=== PATIENT | female | born 2000 | race Caucasian/White ===

== ENCOUNTER 2022-09-29 14:17 | Emergency (ER) | payer MEDICAID, OTHER ==
[~2022-09-29] VITALS: Ht 160 cm; Wt 90.6 kg
[2022-09-29 14:20] VITALS: BP 144/74
--- NOTE | 2022-09-29 14:37 | ED General ---
General Chief Complaint: General Problems/Pain Stated Complaint: DIZZINESS; NAUSEA Source of Information: Patient Exam Limitations: No Limitations History of Present Illness Date Seen by Provider: Sep 29, 2022 Time Seen by Provider: 14:21 Initial Comments 22-year-old female who is otherwise healthy presents emergency department today for nausea and dizziness when she wakes up. Symptoms last about 30 minutes every time she wakes up. Symptoms present for a couple of months now. She was seen in the walk-in clinic and given nausea medicine. She states this made it worse. She is currently asymptomatic but states every morning for about 30 minutes she has nausea and dizziness. No chest pain or shortness of breath. No changes in bowel or bladder habits. Last menstrual cycle was last month and normal for her. Bedside test is negative here today. All other systems reviewed and negative except documented per HPI. Voice recognition software was used to help create this chart Allergies and Home Medications Patient Home Medication List Home Medication List Reviewed: Yes Review of Systems Review of Systems Constitutional: no symptoms reported Past Saeuldd-Mxffsu-Cbizow Hx Patient Social History Tobacco Use?: No Use of E-Cig and/or Vaping dev: No Substance use?: No Alcohol Use?: No Family Medical History Reviewed Nursing Family Hx No Pertinent Family Hx Physical Exam Vital Signs Capillary Refill : Height, Weight, BMI Height: '" Weight: lbs. oz. kg; BMI Method: General Appearance: No Apparent Distress, WD/WN HEENT: Normal ENT Inspection, Pharynx Normal Neck: Full Range of Motion, Normal Inspection, Non Tender, Supple Respiratory: Chest Non Tender, Lungs Clear, Normal Breath Sounds, No Accessory Muscle Use, No Respiratory Distress Cardiovascular: Regular Rate, Rhythm, No Murmur, Normal Peripheral Pulses Gastrointestinal: Normal Bowel Sounds, No Organomegaly, No Pulsatile Mass, Non Tender, Soft Extremity: Normal Capillary Refill, Normal Inspection, Normal Range of Motion, Non Tender Neurologic/Psychiatric: Alert, Oriented x3, No Motor/Sensory Deficits, Normal Mood/Affect, rn staff II-XII Norm as Tested Skin: Normal Color, Warm/Dry Lymphatic: No Adenopathy Progress/Results/Core Measures Suspected Sepsis SIRS Temperature: Pulse: Respiratory Rate: Blood Pressure / Mean: Results/Orders Vital Signs/I&O Capillary Refill : Departure Communication (Admissions) Patient is hemodynamically stable. She is completely asymptomatic. Bedside test is negative. Symptoms upwards of 2 months now, no indication for lab testing or other evaluation at this time. She only has symptoms when she wakes up which really limits the differential diagnosis. She will be discharged home with close primary care follow-up. She has an appointment on the . Impression Primary Impression: Encounter for medical screening examination Disposition: HOME, SELF-CARE Condition: Stable Departure-Patient Inst. Referrals: NO,LOCAL PHYSICIAN (PCP/Family) Primary Care Physician Add. Discharge Instructions: No emergent medical condition is identified for your symptoms today. Keep your appointment on the with your primary care doctor for further evaluation and treatment. Continue to use the nausea medicine you have at home as needed. All discharge instructions reviewed with patient and/or family. Voiced understanding. ANA MARIA RICE DO Sep 29, 2022 14:36
== END 2022-09-29 14:40 | disposition home or self-care (01) ==
LOC: ER FS 14:19
DX: Z00.00 Encounter for general adult medical examination without abnormal findings (principal); Z28.310 Unvaccinated for COVID-19
CPT/HCPCS: 99281

== ENCOUNTER 2022-11-05 18:48 | Emergency (ER) | payer MEDICAID ==
[~2022-11-05] VITALS: Ht 160 cm; Wt 89.9 kg
[2022-11-05 18:54] VITALS: BP 122/75
--- NOTE | 2022-11-05 19:06 | Diagnostic Imaging Report ---
INDICATION: Right foot pain. FINDINGS: Three views of the right foot show no fracture, dislocation or other acute abnormality. IMPRESSION: Negative right foot. Dictated by: Dictated on workstation # [id number]
--- NOTE | 2022-11-05 19:13 | ED Lower Extremity ---
General Chief Complaint: Lower Extremity Stated Complaint: FELL/TRIPPED,R PINKY TOE PAIN Nursing Triage Note: patient states she tripped and has pain rt pinky toe Source: patient History of Present Illness Date Seen by Provider: Nov 05, 2022 Time Seen by Provider: 18:51 Initial Comments 22-year-old female presenting with complaints of pain in her right foot in the fourth and fifth toes. She states that she had tripped over dogs at home this afternoon and ended up bending her toes in the right direction. She felt like she was having pain more when she walks. She has not taken anything for pain. She reports that she was too late to get to urgent care and have imaging done so she came here to the emergency department. She denies any other injuries. She did not hit her head or lose consciousness. She rates her pain at a 4 out of 10 unless she is walking and bearing weight and then it goes up "really high." Onset: this afternoon Severity: moderate Pain/Injury Location: right 4th toe, right 5th toe Method of Injury: other (Tripped over her dogs at home) Modifying Factors: Worse With Movement Allergies and Home Medications Allergies Coded Allergies: No Known Allergies (Verified Allergy, Unknown, 09/29/22) Patient Home Medication List Home Medication List Reviewed: Yes Review of Systems Constitutional: No chills, No fever EENTM: no symptoms reported Respiratory: no symptoms reported Cardiovascular: no symptoms reported Gastrointestinal: no symptoms reported Genitourinary: no symptoms reported Musculoskeletal: see HPI Skin: No change in color Psychiatric/Neurological: Denies Numbness, Denies Paresthesia Past Awokhgg-Zpyops-Tqztjf Hx Immunizations Up To Date Influenza Vaccine Up-to-Date: No; Not Current Past Medical History Surgery/Hospitalization HX: Denies. Family Medical History No Pertinent Family Hx Physical Exam Vital Signs Vital Signs - First Documented 11/05/22 18:54 Temp 36.9 Pulse 112 Resp 14 B/P (MAP) 122/75 (91) Pulse Ox 100 O2 Delivery Room Air Capillary Refill : Less Than 3 Seconds Height, Weight, BMI Height: '" Weight: lbs. oz. kg; 35.00 BMI Method: General Appearance: WD/WN, no apparent distress Cardiovascular: normal peripheral pulses Feet: right foot pain (Fourth and fifth toes), right foot soft tissue tenderness, right foot other (She has tenderness to palpation and movement of the fourth and fifth toes. There is no crepitus or step-off and no obvious deformity. There is no erythema or bruising.) Neurologic/Tendon: normal sensation, normal motor functions, normal tendon functions Neurologic/Psychiatric: alert, oriented x 3 Skin: normal color, warm/dry Progress/Results/Core Measures Results/Orders My Orders Orders - RALPH BADILLO MD Foot 3 View Right (11/05/22 18:52) Post-Op Shoe (11/05/22 19:16) Vital Signs/I&O 11/05/22 18:54 Temp 36.9 Pulse 112 Resp 14 B/P (MAP) 122/75 (91) Pulse Ox 100 O2 Delivery Room Air Blood Pressure Mean: 91 Progress Progress Note #1: Progress Note X-rays were obtained of the right foot to evaluate the fourth and fifth toes. On my personal interpretation and review I did not appreciate any acute fracture or dislocation. Counseled patient on symptomatic care of nilay taping and using a postop shoe. He is ice and elevation as well as anti-inflammatories to help with pain. Progress Note #2: Time: 19:11 Progress Note I reviewed the radiologist report on the three-view films of the right foot and they also did not see any acute fractures or dislocation. Proceed with plan as above Diagnostic Imaging Diagonstic Imaging: Xray Plain Films/CT/US/NM/MRI: other (right foot) Comments [facility], [place] NAME: OSWALD HENLEY [facility] REC#: [id number] PT STATUS: REG ER : 2000 PHYSICIAN: RALPH BADILLO MD ADMIT DATE: 11/05/22/ER FS Signed Date of Exam:11/05/22 FOOT 3 VIEW RIGHT INDICATION: Right foot pain. FINDINGS: Three views of the right foot show no fracture, dislocation or other acute abnormality. IMPRESSION: Negative right foot. Dictated by: Dictated on workstation # [id number] Dict: 11/05/221902 Trans: 11/05/221906 [facility] [id number] Interpreted by: JASS PERDUE MD Electronically signed by: JASS PERDUE MD 11/05/221906 Reviewed: Reviewed by Me Departure Impression Primary Impression: Toe pain, right Additional Impression: Contusion of toe of right foot Qualified Codes: S90.121A - Contusion of right lesser toe(s) without damage to nail, initial encounter Disposition: HOME, SELF-CARE Condition: Stable Departure-Patient Inst. Decision time for Depature: 19:11 Referrals: NO,LOCAL PHYSICIAN (PCP) Primary Care Physician [facility] [place] Patient Instructions: Minor Contusion ED, Toe Injury (DC) Add. Discharge Instructions: You could try taping the toes together to help give them extra support. Use a thick soled shoe to help limit movement of your toes. May use ice to help with pain and inflammation. Use ibuprofen or naproxen to help with pain and inflammation. Check back with the clinic if not improving or having worsening symptoms All discharge instructions reviewed with patient and/or family. Voiced understanding. RALPH BADILLO MD Nov 05, 2022 19:13
== END 2022-11-05 19:18 | disposition home or self-care (01) ==
LOC: EDUNIT# 18:48 → ER FS 18:50
DX: S90.121A Contusion of right lesser toe(s) without damage to nail, initial encounter (principal); Z28.310 Unvaccinated for COVID-19; W01.0XXA Fall on same level from slipping, tripping and stumbling without subsequent striking against object, initial encounter; Y92.009 Unspecified place in unspecified non-institutional (private) residence as the place of occurrence of the external cause
CPT/HCPCS: 73630

== ENCOUNTER 2022-12-20 17:23 | Emergency (ER) | payer MEDICAID ==
[~2022-12-20] VITALS: Ht 160 cm; Wt 92.1 kg
[2022-12-20] MEDS ORDERED: polyethylene glycoL POWDER 17 GM (MIRALAX) PACK PO STA (17:39)
[2022-12-20] MEDS ORDERED: NS IV 1000 ML 1,000 ML IV STA ×2 (17:39→19:30)
[2022-12-20] MEDS ORDERED: ONDANSETRON 4 MG/2 ML (SDV) Z0FRAN IVP STA (17:39)
--- NOTE | 2022-12-20 17:45 | ED GI ---
General Stated Complaint: ABD PAIN Source of Information: Patient History of Present Illness Date Seen by Provider: Dec 20, 2022 Time Seen by Provider: 17:25 Initial Comments 22-year-old female presenting with complaints of nausea and vomiting for the l ast hour. She also has rectal pressure. She has not had a bowel movement since yesterday. She denies having any vaginal bleeding or spotting. She denies pain with urination. She has not had any fever or chills. She states that she is approximately 9 weeks estimated gestational age and is following with Dr. Josiah Yeager for her obstetrical care. Timing/Duration: 1 Hour Severity/Quality: Severe Modifying Factors: Worsens With Eating Associated Symptoms: No Back Pain, No Chest Pain, No Diaphoresis, No Fever/Chills, No Fatigue, No Headache, No Heartburn; Nausea/Vomiting; No Rash, No Shortness of Air, No Swelling/Mass in Abdomen, No Syncope; Weakness Allergies and Home Medications Allergies Coded Allergies: Penicillins (Verified Allergy, Unknown, 12/20/22) Patient Home Medication List Home Medication List Reviewed: Yes Cephalexin (Cephalexin) 500 Mg Tablet, 500 MG PO TID Prescribed by: RALPH BADILLO on 12/20/222109 Review of Systems Review of Systems Constitutional: No chills, No fever EENTM: No Symptoms Reported Respiratory: No Symptoms Reported Cardiovascular: No Symptoms Reported Gastrointestinal: See HPI Genitourinary: See HPI Musculoskeletal: no symptoms reported Skin: no symptoms reported Psychiatric/Neurological: Anxiety Past Jnenqus-Sqhyla-Mcfsns Hx Past Medical History Surgery/Hospitalization HX: Denies. Family Medical History No Pertinent Family Hx Physical Exam Vital Signs Vital Signs - First Documented 12/20/22 12/20/22 17:30 21:13 Temp 36.7 Pulse 111 Resp 20 B/P (MAP) 112/75 (87) Pulse Ox 99 O2 Delivery Room Air Capillary Refill : Height/Weight/BMI Height: '" Weight: lbs. oz. kg; 35.00 BMI Method: General Appearance: WD/WN, no apparent distress HEENT: PERRL/EOMI Respiratory: chest non-tender, lungs clear, normal breath sounds Cardiovascular: normal peripheral pulses, regular rate, rhythm Gastrointestinal: normal bowel sounds, non tender, soft, no pulsatile mass Rectal: normal exam (no external hemorrhoid or swelling to anal o pening and no erythema), normal rectal tone Extremities: normal range of motion, non-tender, normal capillary refill Neurologic/Psychiatric: alert, oriented x 3 Skin: normal color, warm/dry Progress/Results/Core Measures Results/Orders Lab Results Laboratory Tests Test 12/20/22 18:04 12/20/22 18:56 Range/Units White Blood Count 12.5 H 4.3-11.0 10^3/uL Red Blood Count 4.47 3.80-5.11 10^6/uL Hemoglobin 12.1 11.5-16.0 g/dL Hematocrit 37 35-52 % Mean Corpuscular Volume 83 80-99 fL Mean Corpuscular Hemoglobin 27 25-34 pg Mean Corpuscular Hemoglobin Concent 33 32-36 g/dL Red Cell Distribution Width 13.1 10.0-14.5 % Platelet Count 365 130-400 10^3/uL Mean Platelet Volume 10.5 9.0-12.2 fL Immature Granulocyte % (Auto) 0 % Neutrophils (%) (Auto) 80 H 42-75 % Lymphocytes (%) (Auto) 14 12-44 % Monocytes (%) (Auto) 5 0-12 % Eosinophils (%) (Auto) 1 0-10 % Basophils (%) (Auto) 0 0-10 % Neutrophils # (Auto) 10.0 H 1.8-7.8 10^3/uL Lymphocytes # (Auto) 1.8 1.0-4.0 10^3/uL Monocytes # (Auto) 0.6 0.0-1.0 10^3/uL Eosinophils # (Auto) 0.1 0.0-0.3 10^3/uL Basophils # (Auto) 0.0 0.0-0.1 10^3/uL Immature Granulocyte # (Auto) 0.1 0.0-0.1 10^3/uL Sodium Level 139 135-145 MMOL/L Potassium Level 3.7 3.6-5.0 MMOL/L Chloride Level 105 98-107 MMOL/L Carbon Dioxide Level 21 21-32 MMOL/L Anion Gap 13 5-14 MMOL/L Blood Urea Nitrogen 9 7-18 MG/DL Creatinine 0.67 0.60-1.30 MG/DL Estimat Glomerular Filtration Rate 127 BUN/Creatinine Ratio 13 Glucose Level 100 70-105 MG/DL Calcium Level 9.0 8.5-10.1 MG/DL Corrected Calcium 9.0 8.5-10.1 MG/DL Total Bilirubin 0.3 0.1-1.0 MG/DL Aspartate Amino Transf (AST/SGOT) 15 5-34 U/L Alanine Aminotransferase (ALT/SGPT) 30 0-55 U/L Alkaline Phosphatase 87 40-136 U/L Total Protein 7.3 6.4-8.2 GM/DL Albumin 4.0 3.2-4.5 GM/DL Lipase 45 8-78 U/L Urine Color YELLOW Urine Clarity CLOUDY Urine pH 6.0 5-9 Urine Specific Jasper >=1.030 1.016-1.022 Urine Protein TRACE H NEGATIVE Urine Glucose (UA) NEGATIVE NEGATIVE Urine Ketones TRACE H NEGATIVE Urine Nitrite NEGATIVE NEGATIVE Urine Bilirubin NEGATIVE NEGATIVE Urine Urobilinogen 0.2 < = 1.0 MG/DL Urine Leukocyte Esterase 1+ H NEGATIVE Urine RBC (Auto) NEGATIVE NEGATIVE Urine RBC 5-10 H /HPF Urine WBC 5-10 H /HPF Urine Squamous Epithelial Cells 5-10 /HPF Urine Crystals NONE /LPF Urine Bacteria LARGE H /HPF Urine Casts NONE /LPF Urine Mucus /LPF Urine Culture Indicated YES My Orders Orders - RALPH BADILLO MD Ua Culture If Indicated (12/20/22 17:26) Urine Bedside (12/20/22 17:26) Comprehensive Metabolic Panel (12/20/22 17:39) Lipase (12/20/22 17:39) Ed Iv/Invasive Line Start (12/20/22 17:39) Cbc With Automated Diff (12/20/22 17:39) Ns Iv 1000 Ml (Sodium Chloride 0.9%) (12/20/22 17:39) Ondansetron Injection (Zofran Injectio (12/20/22 17:39) Polyethylene Glycol Powder Pkt (Miralax (12/20/22 17:39) Acetaminophen Tablet (Tylenol Tablet) (12/20/22 18:44) Urine Culture (12/20/22 18:56) Ns Iv 1000 Ml (Sodium Chloride 0.9%) (12/20/22 19:30) Ceftriaxone Pre-Mix (Rocephin Pre-Mix) (12/20/22 19:30) Vital Signs/I&O 12/20/22 12/20/22 17:30 21:13 Temp 36.7 Pulse 111 88 Resp 20 20 B/P (MAP) 112/75 (87) 110/72 Pulse Ox 99 O2 Delivery Room Air Room Air Progress Progress Note #1: Progress Note Potential diagnosis of hemorrhoids, constipation, UTI, anal fissure. Obtain peripheral IV access and send labs for complete blood count, comprehensive metabolic profile, lipase, urinalysis. Initially ordered a bedside test but then patient reports being and approximately 9 weeks EGA so will cancel the bedside test. Give Normal saline 1 L IV fluid bolus for hydration. Zofran 4 mg IV for nausea and vomiting. Progress Note #2: Progress Note 1841 complete blood count shows white blood cell count just slightly elevated to 12.5. Her hemoglobin is low side of normal at 12.1. Normal platelets at 365. Her comprehensive metabolic profile did not show any acute significant abnormality. Her electrolytes were all within normal range. Her creatinine was normal at 0.67. Her lipase was not elevated at 45. On physical exam of her rectum I did not appreciate any external hemorrhoids or obvious swelling or jeovany thema to the anal opening. She could still have internal hemorrhoid but due to pain she would not tolerate a digital rectal exam. Will have patient take Tylenol to try and help with pain and try to give a urine specimen for testing. Consider need for imaging of abdomen/pelvis but with her not having significant abnormality on labs or vital signs will defer radiation of abdomen xray or CT scan of abdomen/pelvis to look for constipation and source of rectal pain since she is approximately 9 weeks EGA. Progress Note #3: Time: 19:26 Progress Note Urinalysis shows dehydration with specific gravity greater than 1.030. She does have trace ketones and 1+ leukocyte esterase with 5-10 white blood cells. She had large bacteria. We will treat for urinary tract infection and given an additional liter of normal saline for hydration. Encourage hydration and have her push fluids to get better hydrated to help with constipation. Have her take MiraLAX daily to help with keeping her stools soft and regular. She could use sitz bath's and Tylenol to try and help with her rectal pain. Check back with Dr. Yeager in the clinic for continued pain. Departure Impression Primary Impression: Anal or rectal pain Additional Impressions: Incidental UTI (urinary tract infection) in in first trimester Disposition: 01 HOME, SELF-CARE Condition: Stable Departure-Patient Inst. Decision time for Depature: 21:08 Referrals: DENIA MARTINEZ MD (PCP) Primary Care Physician JOSIAH YEAGER MD Patient Instructions: Hemorrhoids ED, How to Do a Sitz Bath, Urinary tract infections in Add. Discharge Instructions: You may continue to take acetaminophen or Tylenol to help with pain. Take some MiraLAX or laxative to help with the constipation. Make sure you are drinking plenty of fluids and staying well-hydrated. Take the full course of antibiotics to treat for urinary tract infection. You could try using sitz bath's to help with the anal or rectal pain. Follow-up with Dr. Yeager on Thursday about the pain if you are continuing to have anal or rectal pain. Scripts Cephalexin (Cephalexin) 500 Mg Tablet 500 MG PO TID for UTI for 5 Days, #15 TAB 0 Refills Prov: RALPH BADILLO MD 12/20/22 RALPH BADILLO MD Dec 20, 2022 17:45
[2022-12-20 18:08] LABS: BASOPHILS % (AUTO) 0 % (0-10); EOSINOPHILS # (AUTO) 0.1 10^3/uL (0.0-0.3); EOSINOPHILS % (AUTO) 1 % (0-10); HEMATOCRIT 37 % (35-52); HEMOGLOBIN 12.1 g/dL (11.5-16.0); LYMPHOCYTES # (AUTO) 1.8 10^3/uL (1.0-4.0); LYMPHOCYTES % (AUTO) 14 % (12-44); MEAN CORPUSCULAR HEMOGLOBIN 27 pg (25-34); MEAN CORPUSCULAR HGB CONC 33 g/dL (32-36); MEAN CORPUSCULAR VOLUME 83 fL (80-99); MEAN PLATELET VOLUME 10.5 fL (9.0-12.2); MONOCYTES # (AUTO) 0.6 10^3/uL (0.0-1.0); MONOCYTES % (AUTO) 5 % (0-12); NEUTROPHILS % (AUTO) 80 % (42-75); PLATELET COUNT 365 10^3/uL (130-400); WHITE BLOOD COUNT 12.5 10^3/uL (4.3-11.0)
[2022-12-20 18:24] LABS: BILIRUBIN,TOTAL 0.3 MG/DL (0.1-1.0); CREATININE SERUM 0.67 MG/DL (0.60-1.30); POTASSIUM 3.7 MMOL/L (3.6-5.0); TOTAL PROTEIN 7.3 GM/DL (6.4-8.2)
[2022-12-20] MEDS ORDERED: ACETAMINOPHEN 500 MG TAB (TYLENOL) PO STA (18:44)
[2022-12-20 19:00] LABS: BILIRUBIN,URINE NEGATIVE (NEGATIVE); COLOR,URINE YELLOW; GLUCOSE, URINE (UA) NEGATIVE (NEGATIVE); KETONES,URINE TRACE (NEGATIVE); LEUKOCYTE ESTERASE ,URINE 1+ (NEGATIVE); NITRITE,URINE NEGATIVE (NEGATIVE); PROTEIN,URINE TRACE (NEGATIVE)
[2022-12-20 19:01] LABS: CLARITY,URINE CLOUDY
[2022-12-20 19:02] LABS: BACTERIA,URINE LARGE /HPF
[2022-12-20] MEDS ORDERED: cefTRIAXone PRE-MIX 50 ML IV STA (19:30)
[2022-12-20] MEDS ORDERED: CEPH500T PO (21:10)
[2022-12-20 21:13] VITALS: BP 110/72
== END 2022-12-20 21:13 | disposition home or self-care (01) ==
LOC: EDUNIT# 17:23 → ER FS 17:24
DX: O21.9 Vomiting of pregnancy, unspecified (principal); O23.41 Unspecified infection of urinary tract in pregnancy, first trimester; N39.0 Urinary tract infection, site not specified; O99.891 Other specified diseases and conditions complicating pregnancy; K62.89 Other specified diseases of anus and rectum; Z3A.09 9 weeks gestation of pregnancy; Z88.0 Allergy status to penicillin; Z28.310 Unvaccinated for COVID-19
CPT/HCPCS: 36415; 80053; 81000; 83690; 84703; 85025; 87077; 87088

== ENCOUNTER 2023-05-30 22:35 | Emergency (ER) | payer MEDICAID ==
[~2023-05-30] VITALS: Ht 157.4 cm; Wt 100.0 kg
[~2023-05-30 22:35] MED LIST: CEPH500T PO
--- NOTE | 2023-05-30 22:47 | ED GU-Female ---
General Stated Complaint: 32 WEEKS|ABD PAIN History of Present Illness Date Seen by Provider: May 30, 2023 Time Seen by Provider: 22:42 Initial Comments 23 yr F, who is [id number], is approximately 32 weeks with CRISTOBAL of ,is here today with c/o lower abdominal pain which began yesterday and is present today all day. Pt reports to drinking a lot of water at home.patient states that he does not like a contraction and that the pain is constant. Denies fever and chills, diarrhea, nausea and vomiting, shortness of breath, chest pain, vaginal bleeding. Allergies and Home Medications Allergies Coded Allergies: Penicillins (Verified Allergy, Unknown, 12/20/22) Patient Home Medication List Home Medication List Reviewed: Yes Cephalexin (Cephalexin) 500 Mg Tablet, 500 MG PO TID Prescribed by: RALPH BADILLO on 12/20/222109 Review of Systems Review of Systems Constitutional: no symptoms reported Gastrointestinal: abdominal pain Expected Date of Delivery: Jul 19, 2023 Past Qfpnmpj-Hosywq-Pmvwrr Hx Past Medical History Surgery/Hospitalization HX: Denies. Family Medical History No Pertinent Family Hx Physical Exam Vital Signs Vital Signs - First Documented 05/30/23 22:39 Temp 36.5 Pulse 113 Resp 20 B/P (MAP) 131/94 (106) Pulse Ox 100 O2 Delivery Room Air Capillary Refill : Height, Weight, BMI Height: '" Weight: lbs. oz. kg; 35.00 BMI Method: General Appearance: WD/WN, no apparent distress HEENT: PERRL/EOMI Cardiovascular: regular rate, rhythm, no edema Respiratory: lungs clear, normal breath sounds Gastrointestinal: normal bowel sounds, soft, tenderness (Mild tenderness in the lower abdomen) Pelvic: normal external exam Back: normal inspection, no CVA tenderness, no vertebral tenderness Extremities: normal range of motion Neurologic/Psychiatric: alert, oriented x 3 Skin: normal color Progress/Results/Core Measures Suspected Sepsis SIRS Temperature: Pulse: Respiratory Rate: Blood Pressure / Mean: Results/Orders My Orders Orders - RUBI DAS MD Ua Culture If Indicated (05/30/23 22:49) Drug Screen Stat (Urine) (05/30/23 22:49) Vital Signs/I&O 05/30/23 22:39 Temp 36.5 Pulse 113 Resp 20 B/P (MAP) 131/94 (106) Pulse Ox 100 O2 Delivery Room Air Capillary Refill : Progress Note : Progress Note 1. UTI IN : -UA is positive for leukocyte esterase, WBC, bacteria - Nitrofurantoin 100mg bid for 5 days, first tab given in ER - Follow up with OB in the next 5 days. - Adequate daily hydration - FHR is 134 -The patient was seen in the ED, and treated appropriately to presentation at a specific point in time. Patient is informed that there is a possibility that disease and illness can evolve and change in acuity rapidly or slowly after patient is discharged from the ER. Precautionary advice given to the patient for immediate return to ER if symptoms worsen or do not resolve, and to seek emergency care sooner rather than later. Pt also advised on the importance of PCP follow up and compliance with management and follow up plan with PCP and/or specialist, as this is part of the management plan. Pt verbally expressed understanding. Departure Impression Primary Impression: UTI (urinary tract infection) in in third trimester Disposition: 01 HOME, SELF-CARE Condition: Stable Departure-Patient Inst. Referrals: DENIA MARTINEZ MD (PCP/Family) Primary Care Physician Patient Instructions: Urinary tract infections in Add. Discharge Instructions: - Nitrofurantoin 100mg bid for 5 days, first tab given in ER - Follow up with OB in the next 5 days. - Adequate daily hydration Scripts Nitrofurantoin Macrocrystal (Nitrofurantoin) 100 Mg Capsule 100 MG PO BID for 5 Days, #10 CAP Prov: RUBI DAS MD 05/31/23 RUBI DAS MD May 30, 2023 22:47
[2023-05-30 23:38] LABS: BILIRUBIN,URINE NEGATIVE (NEGATIVE); CLARITY,URINE CLOUDY; COLOR,URINE YELLOW; GLUCOSE, URINE (UA) NEGATIVE (NEGATIVE); KETONES,URINE NEGATIVE (NEGATIVE); LEUKOCYTE ESTERASE ,URINE 2+ (NEGATIVE); NITRITE,URINE NEGATIVE (NEGATIVE); PROTEIN,URINE TRACE (NEGATIVE)
[2023-05-30 23:41] LABS: BACTERIA,URINE LARGE /HPF; SQUAMOUS EPITHELIAL CELL,UR >50 /HPF; WBC,URINE 25-50 /HPF
[2023-05-30 23:49] LABS: AMPHETAMINE SCREEN, URINE NEGATIVE (NEGATIVE); BARBITURATE SCREEN URINE NEGATIVE (NEGATIVE); CANNABINOID SCREEN, URINE POSITIVE (NEGATIVE); COCAINE SCREEN URINE NEGATIVE (NEGATIVE); METHADONE STAT NEGATIVE (NEGATIVE); OPIATE SCREEN URINE NEGATIVE (NEGATIVE); OXYCODONE STAT NEGATIVE (NEGATIVE); TRICYCLIC ANTIDEPRESSANTS SCRE NEGATIVE (NEGATIVE)
[2023-05-31] MEDS ORDERED: NITROFURANTOIN Monohydrate/Macro 100 MG CAPSULE PO ONE
[2023-05-31] MEDS ORDERED: NITR100C PO (00:01)
[2023-05-31 00:08] VITALS: BP 112/72
== END 2023-05-31 00:08 | disposition home or self-care (01) ==
LOC: EDUNIT# 22:35 → ER FS 22:37
DX: O23.43 Unspecified infection of urinary tract in pregnancy, third trimester (principal); N39.0 Urinary tract infection, site not specified; Z88.0 Allergy status to penicillin; Z3A.32 32 weeks gestation of pregnancy
CPT/HCPCS: 80306; 81000